=== PATIENT | female | born 1975 | race Asian ===

== ENCOUNTER 2018-05-19 07:26 | Outpatient (CLI) | payer MEDICAID ==
--- NOTE | 2018-05-21 09:49 | Ultrasound Report ---
Reason: CERVICAL LYMPHADENOPATHY, LEFT, HX THYROID CANCER Procedure Date: 05/19/2018 Accession Number: [id number] / [id number] Procedure: US - Head or Neck Soft Tissue CPT Code: FULL RESULT: EXAM: THYROID ULTRASOUND EXAM DATE: 05/19/2018 08:00 AM. CLINICAL HISTORY: Cervical lymphadenopathy, left, history of thyroid cancer. COMPARISON: None. TECHNIQUE: Real time sonographic imaging of the thyroid was performed by the blue line operator. Multiple rental sales representative static images were saved for review. FINDINGS: THYROID GLAND: Right Lobe: 5.2 x 1.1 x 2.2 cm, volume 6.6 cc. Normal background echotexture. Right Lobe Nodules: None. Left Lobe: Status post left thyroid gland lobectomy with an apparent remnant as follows: 0.8 x 0.5 x 0.3 cm, volume less than 1 cc. Expected echotexture similar to heterogeneous thyroidal tissue. Left Lobe Nodules: None. Isthmus: Surgically absent. Isthmic Nodules: None. LYMPH NODES: The finding palpable to the patient is a 1.2 x 0.6 x 1.0 cm lymph node. OTHER: None. IMPRESSION: Subcentimeter apparent remnant in the thyroid bed on the left. While the palpable lymph node does not demonstrate overt loss of architecture, the combination of findings is possibly suspicious and should be correlated to surgical results. Management recommendations are based on 2015 [place] [employer] Management Guidelines for Adult Patients with Thyroid Nodules and Differentiated Thyroid Cancer. RADIA
== END 2018-05-19 07:27 | disposition home or self-care (01) ==
LOC: DI 07:26
PROVIDERS: ATTEND Nurse Practitioner
DX: R59.0 Localized enlarged lymph nodes (principal); Z85.850 Personal history of malignant neoplasm of thyroid
CPT/HCPCS: 76536